=== PATIENT | female | born 1960 | race Caucasian/White ===

== ENCOUNTER 2019-04-17 15:57 | Emergency (ER) | payer BC, OTHER ==
--- NOTE | 2019-04-17 16:06 | PDOC ---
Rapid Medical Evaluation Time Seen by Provider: 04/17/19 16:05 Medical Evaluation: Allergies Allergy/AdvReac Type Severity Reaction Status Date / Time levofloxacin [From Levaquin] Allergy Intermediate Itching Verified 10/31/14 02: 27 04/17/19 16:06 CC: left sided pelvic pain for >1 month PE: No CVAT. Had CTAP on 04/15- multiple b/l renal stones. +diverticuli without diverticulitis. Orders: labs, urine, IVF, morphine Patient will proceed to ED for continued evaluation. 04/17/19 16:07 Discharge Disposition - Diagnosis Left sided abdominal pain - Referrals - Patient Instructions - Post Discharge Activity
[2019-04-17 16:08] VITALS: BMI 31.8
[2019-04-17] MEDS ORDERED: ONDANSETRON 4 MG/2 ML VIAL IVPUSH ONE (16:09)
[2019-04-17] MEDS ORDERED: SODIUM CHLORIDE 1,000 ML IV STA (16:09)
[2019-04-17] MEDS ORDERED: morphine CARPU-JECT 4 MG/1 ML DISP.SYRIN IVPUSH ONE (16:09)
[2019-04-17] MEDS ORDERED: morphine SULFATE 4 MG/ML VIAL ONE (17:19)
[2019-04-17] MEDS ORDERED: ONDANSETRON 4 MG/2 ML VIAL ONE (17:19)
[2019-04-17 17:30] LABS: BASO % 0.7 % (0-2.0); EOS % 1.4 % (0-4.5); HEMATOCRIT 37.7 % (32.4-45.2); HEMOGLOBIN 12.7 GM/dL (10.7-15.3); LYMPH % 37.4 % (8-40); MCH 30.7 pg (25.7-33.7); MCHC 33.6 g/dl (32.0-36.0); MEAN CELL VOLUME 91.2 fl (80-96); MEAN PLT VOLUME 6.8 fl (7.5-11.1); NEUT % 54.5 % (42.8-82.8); PLATELET COUNT 249 K/MM3 (134-434); RBC 4.13 M/mm3 (3.60-5.2); RDW 13.2 % (11.6-15.6)
[2019-04-17 17:54] LABS: ALBUMIN 4.1 g/dl (3.4-5.0); BILIRUBIN,TOTAL 0.3 mg/dL (0.2-1); BLOOD UREA NITROGEN 18.1 mg/dL (7-18); CALCIUM 9.4 mg/dL (8.5-10.1); CREATININE 0.8 mg/dL (0.55-1.3); POTASSIUM 3.7 mmol/L (3.5-5.1); TOT PROT 7.2 g/dl (6.4-8.2)
[2019-04-17 18:16] LABS: EPI CELLS 0.8 /HPF (0-5/HPF); HYALINE CASTS 4 /lpf (0-8); PH,URINE 5.5 (5.0-8.0); URINE APPEARANCE CLEAR; URINE BACTERIA 2.5 /hpf (NEGATIVE); URINE BILIRUBIN NEGATIVE (NEGATIVE); URINE COLOR YELLOW; URINE GLUCOSE (UA) NEGATIVE (NEGATIVE); URINE KETONE NEGATIVE (NEGATIVE); URINE LEUK ESTERASE NEGATIVE (NEGATIVE); URINE NITRITE NEGATIVE (NEGATIVE); URINE PROTEIN NEGATIVE (NEGATIVE); URINE RBC 111 /hpf (0-4); URINE UROBILINOGEN 0.2 mg/dL (0.2-1.0); URINE WBC 1 /hpf (0-5)
--- NOTE | 2019-04-17 18:31 | PDOC ---
History of Present Illness - General Chief Complaint: Pain, Acute Stated Complaint: KIDNEY STONE Time Seen by Provider: 04/17/19 16:05 History Source: Patient Exam Limitations: No Limitations - History of Present Illness Travel History: No Initial Comments: 04/17/19 18:02 58-year-old female presents to ED with continual left suprapubic left flank pain for the past few months. Patient states has history of kidney stones and had imaging done 2 days ago but did not receive the results as of yet. Patient denies recent travel, recent change in diet or weight loss. Timing/Duration: reports: intermittent Quality: reports: moderate, cramping Abdominal Pain Onset Location: reports: LLQ, flank Pain Radiation: reports: other (Suprapubic) Activities at Onset: reports: none Aggravating Factors: improves with: None Alleviating Factors: improves with: None Past History - Travel Traveled outside of the country in the last 30 days: No Close contact w/someone who was outside of country & ill: No - Past Medical History Allergies/Adverse Reactions: Allergies Allergy/AdvReac Type Severity Reaction Status Date / Time levofloxacin [From Levaquin] Allergy Intermediate Itching Verified 04/17/19 16: 08 Home Medications: Ambulatory Orders Bisacodyl [Dulcolax] 5 mg PO DAILY 05/11/14 Hydrocortisone Acetate [Anusol Hc Suppository -] 25 mg RC HS #7 supp.rect Lisinopril/Hydrochlorothiazide [Lisinopril-Hctz 20-25 mg Tab] 1 tab PO DAILY 08/12 Polyethylene Glycol 3350 [Miralax 119 gm Btl -] 1 cap PO DAILY 05/11/14 Psyllium Seed [Metamucil] 1 cap PO DAILY 05/11/14 Hydrocodone/Acetaminophen [Vicodin 5-300 mg Tablet] 1 each PO Q6H PRN #15 tablet 10/31/14 Oxycodone HCl/Acetaminophen [Percocet 5-325 mg Tablet -] 1 - 2 tab PO Q6H PRN # 15 tablet 10/31/14 Ibuprofen 600 mg PO QID PRN #20 tablet 04/17/19 Anemia: No Asthma: No Cancer: No Cardiac Disorders: No CVA: No COPD: No CHF: No DVT: No Dementia: No Diabetes: No Dialysis: No GI Disorders: Yes (CHRONIC CONSTIPATION) Disorders: No HTN: Yes Hypercholesterolemia: No Kidney Stones: Yes (H/O) Liver Disease: No Psychiatric Problems: No Seizures: No Thyroid Disease: No Lung CA: No - Surgical History Abdominal Surgery: No Appendectomy: No Cardiac Surgery: No Cholecystectomy: No Lung Surgery: No Neurologic Surgery: No Orthopedic Surgery: Yes - Immunization History Immunization Up to Date: No - Suicide/Smoking/Psychosocial Hx Smoking History: Never smoked Have you smoked in the past 12 months: No Number of Cigarettes Smoked Daily: 0 Hx Alcohol Use: No Drug/Substance Use Hx: No Substance Use Type: None Patient Lives Alone: No Lives with/in: spouse/SO Review of Systems - Review of Systems Able to Perform ROS?: Yes Constitutional: No: Symptoms Reported HEENTM: No: Symptoms Reported Respiratory: No: Symptoms reported Cardiac (ROS): No: Symptoms Reported ABD/GI: Yes: Abdominal cramping : Yes: Flank Pain Musculoskeletal: No: Back Pain Integumentary: No: Symptoms Reported Neurological: No: Symptoms reported Hematologic/Lymphatic: No: Symptoms Reported *Physical Exam - Vital Signs Last Vital Signs Temp Pulse Resp BP Pulse Ox 98.1 F 64 16 129/75 97 04/17/19 16:06 04/17/19 16:06 04/17/19 16:06 04/17/19 16:06 04/17/19 16:06 - Physical Exam General Appearance: Yes: Nourished, Appropriately Dressed. No: Apparent Distress HEENT: positive: EOMI. negative: Pale Conjunctivae Neck: positive: Normal Thyroid, Supple Respiratory/Chest: positive: Lungs Clear, Normal Breath Sounds. negative: Respiratory Distress, Accessory Muscle Use Cardiovascular: positive: Regular Rhythm, Regular Rate. negative: Murmur Gastrointestinal/Abdominal: positive: Normal Bowel Sounds, Soft, Tenderness ( left flank). negative: Distended Musculoskeletal: negative: CVA Tenderness Extremity: positive: Normal Inspection Integumentary: positive: Normal Color, Warm, Moist Neurologic: positive: Motor Strength 5/5 ( ambulatory) ED Treatment Course - LABORATORY CBC & Chemistry Diagram: 04/17/19 17:07 04/17/19 17:07 - ADDITIONAL ORDERS Additional order review: Laboratory Results 04/17/19 04/17/19 04/17/19 17:55 17:07 17:07 Sodium 144 Potassium 3.7 Chloride 109 H Carbon Dioxide 30 Anion Gap 6 L BUN 18.1 H Creatinine 0.8 Est GFR (CKD-EPI)AfAm 93.53 Est GFR (CKD-EPI)NonAf 80.70 Random Glucose 102 Calcium 9.4 Total Bilirubin 0.3 AST 14 L ALT 18 Alkaline Phosphatase 81 Total Protein 7.2 Albumin 4.1 Lipase 103 Urine Color Yellow Urine Appearance Clear Urine pH 5.5 D Ur Specific [place] 1.022 Urine Protein Negative Urine Glucose (UA) Negative Urine Ketones Negative Urine Blood 2+ H Urine Nitrite Negative Urine Bilirubin Negative Urine Urobilinogen 0.2 Ur Leukocyte Esterase Negative Urine WBC (Auto) 1 Urine RBC (Auto) 111 Urine Casts (Auto) 4 U Epithel Cells (Auto) 0.8 Urine Bacteria (Auto) 2.5 04/17/19 17:07 RBC 4.13 MCV 91.2 MCHC 33.6 RDW 13.2 MPV 6.8 L Neutrophils % 54.5 Lymphocytes % 37.4 D Monocytes % 6.0 Eosinophils % 1.4 Basophils % 0.7 - RADIOLOGY Radiology Studies Ordered: Category Date Time Status KIDNEY / RENAL US [US] Stat Ultrasound 04/17/19 17:45 Ordered PELVIC / BLADDER US [US] Stat Ultrasound 04/17/19 17:45 Ordered - Medications Given in the ED: ED Medications Discontinued Medications Generic Name Dose Route Start Last Admin Trade Name Freq PRN Reason Stop Dose Admin Sodium Chloride 1,000 mls @ 1,000 mls/hr 04/17/19 16:09 04/17/19 17:27 Normal Saline - IV 04/17/19 17:08 1,000 mls/hr ASDIR STA Administration Morphine Sulfate 4 mg 04/17/19 16:09 04/17/19 17:27 Morphine Injection - IVPUSH 04/17/19 16:10 4 mg ONCE ONE Administration Ondansetron HCl 4 mg 04/17/19 16:09 04/17/19 17:27 Zofran Injection IVPUSH 04/17/19 16:10 4 mg ONCE ONE Administration Medical Decision Making - Medical Decision Making 04/17/19 18:29 Chief complaint: Patient with left abdominal pain and states symptoms feel similar to previous episodes when she had kidney stones. Patient states had a CT done 2 days ago but has not received the results. CT reviewed from April 15 and showed bilateral kidney stones without obstruction or perinephric stranding Exam: Patient left flank tenderness vital signs stable no CVA tenderness. Plan: patient ordered for labs, urine, IV fluids, Zofran, morphine and ultrasound. 04/17/19 19:00 Laboratory Tests 04/17/19 04/17/19 04/17/19 17:07 17:07 17:07 WBC 7.0 Hgb 12.7 Hct 37.7 Absolute Neuts (auto) 3.8 Sodium 144 Potassium 3.7 Chloride 109 H Anion Gap 6 L BUN 18.1 H Creatinine 0.8 Calcium 9.4 Total Bilirubin 0.3 AST 14 L ALT 18 Alkaline Phosphatase 81 Total Protein 7.2 Albumin 4.1 Lipase 103 Urine Blood Ur Leukocyte Esterase Urine WBC (Auto) Urine RBC (Auto) 04/17/19 17:55 WBC Hgb Hct Absolute Neuts (auto) Sodium Potassium Chloride Anion Gap BUN Creatinine Calcium Total Bilirubin AST ALT Alkaline Phosphatase Total Protein Albumin Lipase Urine Blood 2+ H Ur Leukocyte Esterase Negative Urine WBC (Auto) 1 Urine RBC (Auto) 111 *DC/Admit/Observation/Transfer Diagnosis at time of Disposition: Left sided abdominal pain, Kidney stones - Discharge Dispostion Disposition: HOME Condition at time of disposition: Stable - Prescriptions Prescriptions: Ibuprofen 600 mg PO QID PRN #20 tablet PRN Reason: Pain - Referrals Referrals: Robert Arenas MD [Staff Physician] - Jason Owens MD [Primary Care Provider] - - Patient Instructions Printed Discharge Instructions: Kidney Stones -- Adult Additional Instructions: drink plenty of fluids take ibuprofen every 6 hours as needed for pain - Post Discharge Activity Forms/Work/School Notes: Back to Work
[2019-04-17] MEDS ORDERED: KETOROLAC TROMETHAMINE 30 MG/1 ML VIAL IVPUSH ONE (20:17)
--- NOTE | 2019-04-17 20:17 | PDOC ---
*Physical Exam - Vital Signs Last Vital Signs Temp Pulse Resp BP Pulse Ox 98.1 F 64 16 129/75 97 04/17/19 16:06 04/17/19 16:06 04/17/19 16:06 04/17/19 16:06 04/17/19 16:06 - Physical Exam General Appearance: Yes: Appropriately Dressed ED Treatment Course - LABORATORY CBC & Chemistry Diagram: 04/17/19 17:07 04/17/19 17:07 - ADDITIONAL ORDERS Additional order review: Laboratory Results 04/17/19 04/17/19 04/17/19 17:55 17:07 17:07 Sodium 144 Potassium 3.7 Chloride 109 H Carbon Dioxide 30 Anion Gap 6 L BUN 18.1 H Creatinine 0.8 Est GFR (CKD-EPI)AfAm 93.53 Est GFR (CKD-EPI)NonAf 80.70 Random Glucose 102 Calcium 9.4 Total Bilirubin 0.3 AST 14 L ALT 18 Alkaline Phosphatase 81 Total Protein 7.2 Albumin 4.1 Lipase 103 Urine Color Yellow Urine Appearance Clear Urine pH 5.5 D Ur Specific [place] 1.022 Urine Protein Negative Urine Glucose (UA) Negative Urine Ketones Negative Urine Blood 2+ H Urine Nitrite Negative Urine Bilirubin Negative Urine Urobilinogen 0.2 Ur Leukocyte Esterase Negative Urine WBC (Auto) 1 Urine RBC (Auto) 111 Urine Casts (Auto) 4 U Epithel Cells (Auto) 0.8 Urine Bacteria (Auto) 2.5 04/17/19 17:07 RBC 4.13 MCV 91.2 MCHC 33.6 RDW 13.2 MPV 6.8 L Neutrophils % 54.5 Lymphocytes % 37.4 D Monocytes % 6.0 Eosinophils % 1.4 Basophils % 0.7 - Medications Given in the ED: ED Medications Discontinued Medications Generic Name Dose Route Start Last Admin Trade Name Freq PRN Reason Stop Dose Admin Sodium Chloride 1,000 mls @ 1,000 mls/hr 04/17/19 16:09 04/17/19 17:27 Normal Saline - IV 04/17/19 17:08 1,000 mls/hr ASDIR STA Administration Morphine Sulfate 4 mg 04/17/19 16:09 04/17/19 17:27 Morphine Injection - IVPUSH 04/17/19 16:10 4 mg ONCE ONE Administration Ondansetron HCl 4 mg 04/17/19 16:04/17/19 17:27 Zofran Injection IVPUSH 04/17/19 16:10 4 mg ONCE ONE Administration Medical Decision Making - Medical Decision Making 04/17/19 20:04 no hydronephrosis on US. likely recently passed stone. will give one dose of flomax. talked to patient about urology follow up , increasing hydration. strict return precautions reviewed 04/17/19 20:33 *DC/Admit/Observation/Transfer Diagnosis at time of Disposition: Left sided abdominal pain, Kidney stones - Discharge Dispostion Disposition: HOME - Prescriptions Prescriptions: Ibuprofen 600 mg PO QID PRN #20 tablet PRN Reason: Pain - Referrals Referrals: Jason Owens MD [Primary Care Provider] - Robert Arenas MD [Staff Physician] - - Patient Instructions Printed Discharge Instructions: Kidney Stones -- Adult Additional Instructions: drink plenty of fluids take ibuprofen every 6 hours as needed for pain - Post Discharge Activity Forms/Work/School Notes: Back to Work
[2019-04-17] MEDS ORDERED: TAMSULOSIN HCL 0.4 MG CAP PO ONE (20:18)
[2019-04-17] MEDS ORDERED: TAMSULOSIN HCL 0.4 MG CAP ONE (20:46)
[2019-04-17] MEDS ORDERED: KETOROLAC TROMETHAMINE 30 MG/1 ML VIAL ONE (20:46)
[2019-04-17 21:00] VITALS: BP 126/78; PULSE 86; TEMP 98.6
== END 2019-04-17 21:00 | disposition home or self-care (01) ==
LOC: JER 15:57
PROC: 3E0333Z Introduction of Anti-inflammatory into Peripheral Vein, Percutaneous Approach (ICD-10-PCS; principal; 2019-04-17)
PROC: 3E033NZ Introduction of Analgesics, Hypnotics, Sedatives into Peripheral Vein, Percutaneous Approach (ICD-10-PCS; 2019-04-17)
PROC: 3E0337Z Introduction of Electrolytic and Water Balance Substance into Peripheral Vein, Percutaneous Approach (ICD-10-PCS; 2019-04-17)
PROC: 3E033GC Introduction of Other Therapeutic Substance into Peripheral Vein, Percutaneous Approach (ICD-10-PCS; 2019-04-17)
DX: R10.9 Unspecified abdominal pain (principal); I10 Essential (primary) hypertension; Z87.442 Personal history of urinary calculi
CPT/HCPCS: 36415; 76775-TC; 76856-TC; 80053; 81003; 83690; 85025; 87086; 99283-25; J7030

== ENCOUNTER 2022-11-02 04:03 | Day surgery (SDC) | payer BC ==
[2022-10-28 17:50] VITALS: BMI 31.8
[2022-11-02] MEDS ORDERED: ceFAZolin SODIUM 1 GM VIAL ONE (09:26)
[2022-11-02] MEDS ORDERED: ONDANSETRON 4 MG/2 ML VIAL ONE (09:26)
[2022-11-02] MEDS ORDERED: MIDAZOLAM HCL 2 MG/2 ML SINGLE DOSE VIAL ONE (09:26)
[2022-11-02] MEDS ORDERED: ceFAZolin SODIUM 1 GM VIAL IVPB ONE (09:27)
[2022-11-02] MEDS ORDERED: GENTAMICIN SO4 80 MG/2 ML VIAL ONE (09:28)
[2022-11-02] MEDS ORDERED: GENTAMICIN SO4 80 MG/2 ML VIAL IVPB ONE (09:28)
[2022-11-02 10:18] VITALS: RESP 20; TEMP 97.3
[2022-11-02 10:52] VITALS: BP 119/68; PULSE 83
== END 2022-11-02 11:00 | disposition home or self-care (01) ==
LOC: JASU-SURG 04:03
PROVIDERS: ATTEND Urology
PROC: 0TF3XZZ Fragmentation in Right Kidney Pelvis, External Approach (ICD-10-PCS; principal; 2022-11-02 09:00)
DX: N20.0 Calculus of kidney (principal)

== ENCOUNTER 2023-07-12 04:36 | Day surgery (SDC) | payer BC ==
[2023-07-08 13:22] VITALS: BMI 31.8
[~2023-07-12 04:36] MED LIST: GENTAMICIN SO4 80 MG/2 ML VIAL IVPB ONE; ceFAZolin SODIUM 1 GM VIAL IVPB ONE
[2023-07-12 07:25] VITALS: RESP 20
[2023-07-12] MEDS ORDERED: ceFAZolin SODIUM 1 GM VIAL ONE (08:29)
[2023-07-12] MEDS ORDERED: GENTAMICIN SO4 80 MG/2 ML VIAL ONE (08:29)
[2023-07-12] MEDS ORDERED: SODIUM CHLORIDE 0.9% P/F 10 ML VIAL IJ ONE (08:32)
[2023-07-12] MEDS ORDERED: ONDANSETRON 4 MG/2 ML VIAL ONE (08:34)
[2023-07-12] MEDS ORDERED: FENTANYL CITRATE/PF 50 MCG/ML VIAL ONE (08:34)
[2023-07-12] MEDS ORDERED: MIDAZOLAM HCL 2 MG/2 ML SINGLE DOSE VIAL ONE (08:34)
[2023-07-12] MEDS ORDERED: GENTAMICIN SO4 80 MG/2 ML VIAL IVPB ONE (09:02)
[2023-07-12] MEDS ORDERED: ceFAZolin SODIUM 1 GM VIAL IVPB ONE (09:02)
[2023-07-12 10:26] VITALS: BP 120/68; PULSE 60; TEMP 98
== END 2023-07-12 10:28 | disposition home or self-care (01) ==
LOC: JASU-SURG 04:36
PROVIDERS: ATTEND Urology
PROC: 0TF4XZZ Fragmentation in Left Kidney Pelvis, External Approach (ICD-10-PCS; principal; 2023-07-12 09:00)
DX: N20.0 Calculus of kidney (principal)

== ENCOUNTER 2024-04-17 04:16 | Day surgery (SDC) | payer BC ==
[2024-04-13 16:45] VITALS: BMI 32.2
[2024-04-17 10:09] VITALS: RESP 20
[2024-04-17] MEDS ORDERED: MIDAZOLAM HCL 2 MG/2 ML SINGLE DOSE VIAL ONE (13:39)
[2024-04-17] MEDS: cefTRIAXone SODIUM 1 GM VIAL IVPB ONE (13:44)
[2024-04-17 14:14] VITALS: PULSE 70
[2024-04-17 14:50] VITALS: BP 119/83; TEMP 98
== END 2024-04-17 15:37 | disposition home or self-care (01) ==
LOC: JASU-SURG 04:16
PROVIDERS: ATTEND Urology
PROC: 0TF4XZZ Fragmentation in Left Kidney Pelvis, External Approach (ICD-10-PCS; principal; 2024-04-17 13:45)
DX: N20.0 Calculus of kidney (principal)

== ENCOUNTER 2025-06-11 06:25 | Day surgery (SDC) | payer BC ==
[2025-06-06 11:57] VITALS: BMI 28.1
[2025-06-11 08:23] VITALS: RESP 20
[2025-06-11] MEDS ORDERED: MIDAZOLAM HCL 2 MG/2 ML SINGLE DOSE VIAL ONE (08:28)
[2025-06-11 10:59] VITALS: BP 121/71; PULSE 65; TEMP 98
== END 2025-06-11 11:00 | disposition home or self-care (01) ==
LOC: JASU-SURG 06:25
PROVIDERS: ATTEND Urology
PROC: 0TF3XZZ Fragmentation in Right Kidney Pelvis, External Approach (ICD-10-PCS; principal; 2025-06-11 09:15)
DX: N20.0 Calculus of kidney (principal)